=== PATIENT | male | born 1935 | race Caucasian/White ===

== ENCOUNTER 2017-09-05 19:37 | Inpatient (IN) | payer OTHER ==
[~2017-09-05 19:37] MED LIST: ETOMIDATE 20 MG INJ; SUCCINYLCHOLINE CHLORIDE 100 MG/5 ML SYG IV
[2017-09-05] MEDS: ASPIRIN 81 MG TAB PO (19:49)
[2017-09-05] MEDS: METHYLPREDNISOLONE 125 MG INJ IV (19:49)
[2017-09-05] MEDS: FUROSEMIDE 40 MG INJ IV (19:50)
[2017-09-05] MEDS ORDERED: ONDANSETRON 4 MG INJ (19:57)
[2017-09-05] MEDS: ONDANSETRON 4 MG INJ IV (20:04)
[2017-09-05 20:06] LABS: ADD MAN DIFF? NO
[2017-09-05 20:09] LABS: ABNORMAL IP MESSAGE 1; BASOPHILS % 0.2 % (0.0-2.0); EOSINOPHILS # 0.1 10^3/ul (0.0-0.5); EOSINOPHILS % 1.3 % (0.0-7.0); HEMATOCRIT 36.9 % (42.0-52.0); HEMOGLOBIN 12.1 g/dl (14.0-18.0); LYMPHOCYTES # 0.4 10^3/ul (0.8-2.9); LYMPHOCYTES % 7.2 % (15.0-51.0); MEAN CORPUSCULAR HEMOGLOBIN 33.2 pg (29.0-33.0); MEAN CORPUSCULAR HGB CONC 32.8 g/dl (32.0-37.0); MEAN CORPUSCULAR VOLUME 101.4 fl (82.0-101.0); MEAN PLATELET VOLUME 9.9 fl (7.4-10.4); MONOCYTE # 0.5 10^3/ul (0.3-0.9); MONOCYTES % 8.9 % (0.0-11.0); NEUTROPHILS % 81.9 % (39.0-77.0); PLATELET COUNT 185 10^3/UL (140-415); POSITIVE DIFF @See below; RED BLOOD COUNT 3.64 10^6/ul (4.70-6.10); RED CELL DISTRIBUTION WIDTH 14.4 % (11.5-14.5)
[2017-09-05 20:09] LABS: WHITE BLOOD COUNT 6.1 10^3/ul (4.8-10.8)
[2017-09-05] MEDS: NITROGLYCERIN 50 MG/D5W (PMX) 250 ML IV (20:13)
[2017-09-05] MEDS ORDERED: PROPOFOL 100 ML (20:33)
[2017-09-05 20:35] LABS: ANION GAP 20 (8-16); BLOOD UREA NITROGEN 24 mg/dl (7-20); CALCIUM 9.2 mg/dl (8.4-10.2); CARBON DIOXIDE 30 mmol/L (21-31); CHLORIDE 96 mmol/L (97-110); CREATININE 4.54 mg/dl (0.61-1.24); GLUCOSE 174 mg/dl (70-220); POTASSIUM 3.6 mmol/L (3.5-5.1); SODIUM 142 mmol/L (135-144)
[2017-09-05] MEDS: IPRATROPIUM (NEB) 0.5 MG/2.5 ML AMP INH (20:37)
[2017-09-05] MEDS: ALBUTEROL 0.5% (NEB) 2.5 MG/0.5 ML AMP INH (20:37)
[2017-09-05] MEDS: PROPOFOL 100 ML IV (20:55)
[2017-09-05] MEDS: MIDAZOLAM (DRIP) 50 mg/50 mL 50 ML IV (21:34)
[2017-09-05 22:13] LABS: AADO2 Arterial 353.1 mmHg (7.0-24.0); Allen Test ACCEPTAB; Arterial Base Excess 4.2 mmol/L (-3.0-3); Arterial Blood Gas Oxygen Sat 99.3 mmHG (95.0-100.0); Arterial COHb 0.4 % (0.0-3.0); Arterial Fraction of Oxyhgb 98.8 % (93.0-99.0); Arterial HCO3 27.2 mmol/L (22.0-26.0); Arterial MetHb 0.1 % (0.0-1.5); Arterial Total Hemglobin 10.9 g/dl (12.0-18.0); Arterial pCO2 34.9 mmhg (35-45); MODE VENT - AC; Site Right Radial
[2017-09-05] MEDS ORDERED: LORAZEPAM 2 MG INJ IV (22:30)
[2017-09-05] MEDS ORDERED: PROPOFOL 100 ML IV (22:30)
[2017-09-06] MEDS ORDERED: NORepinephrine 8MG/250 ML (PMX 250 ML (02:07)
[2017-09-06] MEDS: NORepinephrine 8MG/250 ML (PMX 250 ML IV (02:17)
[2017-09-06] MEDS: SOD CHLORIDE 0.9% 1,000 ML IV (03:43)
[2017-09-06] MEDS ORDERED: GLUCOSE GEL 15 GRAM TUBE PO ×2 (04:30)
[2017-09-06] MEDS ORDERED: DEXTROSE 50% 50 ML SYRINGE IV ×2 (04:30)
[2017-09-06] MEDS ORDERED: GLUCOSE GEL 15 GRAM TUBE BUCCAL (04:30)
[2017-09-06] MEDS ORDERED: GLUCAGON 1 MG INJ IM (04:30)
[2017-09-06] MEDS: MIDAZOLAM (DRIP) 50 mg/50 mL 50 ML IV (05:05)
[2017-09-06] MEDS: INSULIN ASPART [NOVOLOG] 3 ML PEN SC ×5 (05:06→21:00)
[2017-09-06 08:18] LABS: ADD MAN DIFF? NO
[2017-09-06 08:23] LABS: ABNORMAL IP MESSAGE 1; HEMATOCRIT 31.6 % (42.0-52.0); HEMOGLOBIN 10.2 g/dl (14.0-18.0); LYMPHOCYTES # 0.2 10^3/ul (0.8-2.9); LYMPHOCYTES % 5.8 % (15.0-51.0); MEAN CORPUSCULAR HEMOGLOBIN 33.1 pg (29.0-33.0); MEAN CORPUSCULAR HGB CONC 32.3 g/dl (32.0-37.0); MEAN CORPUSCULAR VOLUME 102.6 fl (82.0-101.0); MONOCYTE # 0.2 10^3/ul (0.3-0.9); MONOCYTES % 3.8 % (0.0-11.0); NEUTROPHIL # 3.7 10^3/ul (1.6-7.5); NEUTROPHILS % 89.9 % (39.0-77.0); PLATELET COUNT 142 10^3/UL (140-415); POSITIVE DIFF @See below; RED BLOOD COUNT 3.08 10^6/ul (4.70-6.10); RED CELL DISTRIBUTION WIDTH 14.4 % (11.5-14.5)
[2017-09-06 08:23] LABS: WHITE BLOOD COUNT 4.2 10^3/ul (4.8-10.8)
[2017-09-06 08:51] LABS: ALANINE AMINOTRANSFERASE 24 IU/L (13-69); ALBUMIN 3.3 g/dl (3.3-4.9); ALBUMIN/GLOBULIN RATIO 1.13; ALKALINE PHOSPHATASE 68 IU/L (42-121); ANION GAP 18 (8-16); ASPARTATE AMINO TRANSFERASE 17 IU/L (15-46); BILIRUBIN,INDIRECT 0.3 mg/dl (0-1.1); BILIRUBIN,TOTAL 0.3 mg/dl (0.2-1.3); BLOOD UREA NITROGEN 37 mg/dl (7-20); CALCIUM 8.6 mg/dl (8.4-10.2); CARBON DIOXIDE 28 mmol/L (21-31); CHLORIDE 100 mmol/L (97-110); CHOL/HDL RATIO 4.3 RATIO; CHOLESTEROL 118 mg/dl (100-200); CREATININE 5.76 mg/dl (0.61-1.24); GLUCOSE 190 mg/dl (70-220); HDL CHOLESTEROL 27 mg/dl (31-75); LDL CHOLESTEROL,CALCULATED 68 mg/dl; MAGNESIUM 1.9 mg/dl (1.7-2.5); PHOSPHORUS 4.4 mg/dl (2.5-4.9); POTASSIUM 4.5 mmol/L (3.5-5.1); SODIUM 141 mmol/L (135-144); TOTAL PROTEIN 6.2 g/dl (6.1-8.1); TRIGLYCERIDES 115 mg/dl (0-149)
[2017-09-06 08:52] LABS: HEMOGLOBIN A1C 5.6 % (0-5.9)
[2017-09-06] MEDS ORDERED: ENOXAPARIN 40 MG/0.4 ML SYG SC (09:00)
[2017-09-06 11:18] LABS: AADO2 Arterial 150.7 mmHg (7.0-24.0); Allen Test ACCEPTAB; Arterial COHb 0.7 % (0.0-3.0); Arterial HCO3 26.6 mmol/L (22.0-26.0); Arterial MetHb 0.3 % (0.0-1.5); Arterial Total Hemglobin 11.2 g/dl (12.0-18.0); Blood Gas PS 10; MODE VENT - CPAP; Site Right Radial
[2017-09-06] MEDS: ASPIRIN (EC) 81 MG TAB PO (18:09)
[2017-09-06] MEDS: PRAZOSIN 1 MG CAP PO ×2 (18:10→21:00)
[2017-09-06 19:51] LABS: CREATINE KINASE 86 IU/L (23-200)
[2017-09-06 20:05] LABS: CK INDEX 5.6; CK-MB 4.85 ng/ml (0.0-2.4)
[2017-09-06 20:23] LABS: HEPATITIS B SURFACE ANTIGEN NEGATIVE (NEGATIVE)
[2017-09-06] MEDS: METOPROLOL 25 MG TAB PO (21:00)
[2017-09-06] MEDS: ATORVASTATIN 40 MG TAB PO (21:06)
[2017-09-07 01:39] LABS: CREATINE KINASE 63 IU/L (23-200)
[2017-09-07 01:42] LABS: CK INDEX 5.9
[2017-09-07] MEDS: INSULIN ASPART [NOVOLOG] 3 ML PEN SC ×5 (01:42→17:00)
[2017-09-07 01:46] LABS: CK-MB 3.69 ng/ml (0.0-2.4)
[2017-09-07] MEDS: ONDANSETRON 4 MG INJ IV (04:21)
[2017-09-07 05:50] LABS: ADD MAN DIFF? NO
[2017-09-07 05:58] LABS: ABNORMAL IP MESSAGE 1; BASOPHILS % 0.1 % (0.0-2.0); HEMATOCRIT 32.4 % (42.0-52.0); HEMOGLOBIN 10.5 g/dl (14.0-18.0); LYMPHOCYTES # 0.4 10^3/ul (0.8-2.9); LYMPHOCYTES % 3.7 % (15.0-51.0); MEAN CORPUSCULAR HEMOGLOBIN 32.9 pg (29.0-33.0); MEAN CORPUSCULAR HGB CONC 32.4 g/dl (32.0-37.0); MEAN CORPUSCULAR VOLUME 101.6 fl (82.0-101.0); MEAN PLATELET VOLUME 10.6 fl (7.4-10.4); MONOCYTE # 1.2 10^3/ul (0.3-0.9); MONOCYTES % 10.9 % (0.0-11.0); NEUTROPHIL # 8.9 10^3/ul (1.6-7.5); NEUTROPHILS % 84.9 % (39.0-77.0); PLATELET COUNT 165 10^3/UL (140-415); POSITIVE DIFF @See below; RED BLOOD COUNT 3.19 10^6/ul (4.70-6.10); RED CELL DISTRIBUTION WIDTH 14.4 % (11.5-14.5)
[2017-09-07 05:58] LABS: WHITE BLOOD COUNT 10.5 10^3/ul (4.8-10.8)
[2017-09-07 06:28] LABS: ANION GAP 16 (8-16); BLOOD UREA NITROGEN 41 mg/dl (7-20); CALCIUM 8.8 mg/dl (8.4-10.2); CARBON DIOXIDE 29 mmol/L (21-31); CHLORIDE 100 mmol/L (97-110); CREATININE 5.02 mg/dl (0.61-1.24); GLUCOSE 115 mg/dl (70-220); SODIUM 140 mmol/L (135-144)
[2017-09-07 07:43] LABS: FOLATE > 20.0 ng/ml (2.8-20.0)
[2017-09-07] MEDS: PRAZOSIN 1 MG CAP PO (09:59)
[2017-09-07] MEDS: METOPROLOL 25 MG TAB PO (09:59)
[2017-09-07] MEDS: ASPIRIN (EC) 81 MG TAB PO (10:10)
== END 2017-09-07 19:20 | disposition home or self-care (01) | DRG 208 ==
LOC: ICU 21:09 → E/R 19:37
PROC: 0BH17EZ Insertion of Endotracheal Airway into Trachea, Via Natural or Artificial Opening (ICD-10-PCS; principal; 2017-09-05)
PROC: 5A1935Z Respiratory Ventilation, Less than 24 Consecutive Hours (ICD-10-PCS; 2017-09-05)
PROC: 5A1D70Z Performance of Urinary Filtration, Intermittent, Less than 6 Hours Per Day (ICD-10-PCS; 2017-09-06)
PROC: 5A1D70Z Performance of Urinary Filtration, Intermittent, Less than 6 Hours Per Day (ICD-10-PCS; 2017-09-07)
DX: J96.01 Acute respiratory failure with hypoxia (principal); N18.6 End stage renal disease; I50.43 Acute on chronic combined systolic (congestive) and diastolic (congestive) heart failure; I21.A1 Myocardial infarction type 2; I13.2 Hypertensive heart and chronic kidney disease with heart failure and with stage 5 chronic kidney disease, or end stage renal disease; J44.1 Chronic obstructive pulmonary disease with (acute) exacerbation; E11.22 Type 2 diabetes mellitus with diabetic chronic kidney disease; I95.9 Hypotension, unspecified; E87.70 Fluid overload, unspecified; E03.9 Hypothyroidism, unspecified; E11.65 Type 2 diabetes mellitus with hyperglycemia; D63.1 Anemia in chronic kidney disease; E78.5 Hyperlipidemia, unspecified; D50.9 Iron deficiency anemia, unspecified; Z79.4 Long term (current) use of insulin; Z79.82 Long term (current) use of aspirin; Z99.2 Dependence on renal dialysis; Z87.891 Personal history of nicotine dependence
CPT/HCPCS: 31500; 36415; 36600; 71045; 80048; 80053; 80061; 82550; 82553; 82607; 82746; 82803; 82962; 83036; 83735; 84100; 84443; 84484; 85025; 87081; 87340; 90935; 93005; 93306; 94002; 94003; 94644; 94660; 94770; 96374; 96375; 99291-25

== ENCOUNTER 2017-09-17 15:45 | Inpatient (IN) | payer OTHER ==
[2017-09-17 16:32] LABS: ADD MAN DIFF? NO
[2017-09-17 16:34] LABS: BASOPHIL # 0.1 10^3/ul (0.0-0.1); BASOPHILS % 0.3 % (0.0-2.0); EOSINOPHILS # 0.2 10^3/ul (0.0-0.5); EOSINOPHILS % 1.2 % (0.0-7.0); HEMOGLOBIN 10.2 g/dl (14.0-18.0); LYMPHOCYTES # 0.7 10^3/ul (0.8-2.9); LYMPHOCYTES % 4.8 % (15.0-51.0); MEAN CORPUSCULAR HEMOGLOBIN 32.2 pg (29.0-33.0); MEAN CORPUSCULAR HGB CONC 31.9 g/dl (32.0-37.0); MEAN CORPUSCULAR VOLUME 100.9 fl (82.0-101.0); MEAN PLATELET VOLUME 10.1 fl (7.4-10.4); MONOCYTE # 0.9 10^3/ul (0.3-0.9); MONOCYTES % 5.6 % (0.0-11.0); NEUTROPHIL # 13.3 10^3/ul (1.6-7.5); NEUTROPHILS % 87.7 % (39.0-77.0); PLATELET COUNT 265 10^3/UL (140-415); RED BLOOD COUNT 3.17 10^6/ul (4.70-6.10); RED CELL DISTRIBUTION WIDTH 14.8 % (11.5-14.5)
[2017-09-17 16:34] LABS: WHITE BLOOD COUNT 15.2 10^3/ul (4.8-10.8)
[2017-09-17 16:54] LABS: ALANINE AMINOTRANSFERASE 39 IU/L (13-69); ALKALINE PHOSPHATASE 110 IU/L (42-121); ANION GAP 23 (8-16); ASPARTATE AMINO TRANSFERASE 14 IU/L (15-46); BILIRUBIN,INDIRECT 0.2 mg/dl (0-1.1); BILIRUBIN,TOTAL 0.2 mg/dl (0.2-1.3); BLOOD UREA NITROGEN 63 mg/dl (7-20); CALCIUM 8.5 mg/dl (8.4-10.2); CARBON DIOXIDE 21 mmol/L (21-31); CHLORIDE 103 mmol/L (97-110); CREATININE 9.82 mg/dl (0.61-1.24); GLUCOSE 98 mg/dl (70-220); PHOSPHORUS 7.2 mg/dl (2.5-4.9); POTASSIUM 4.3 mmol/L (3.5-5.1); SODIUM 143 mmol/L (135-144)
[2017-09-17 16:55] LABS: ALBUMIN/GLOBULIN RATIO 1.25; TOTAL PROTEIN 7.2 g/dl (6.1-8.1)
[2017-09-17 17:05] LABS: TROPONIN-I 0.015 ng/ml (0.000-0.120)
[2017-09-17 17:21] LABS: INR 1.05; PROTIME 13.8 Sec (11.9-14.9); PT RATIO 1.1
[2017-09-17 17:22] LABS: PARTIAL THROMBOPLASTIN TIME 37.2 Sec (25.0-35.0)
[2017-09-17 17:33] LABS: URINE BLOOD (Dip) POC 2+ (NEGATIVE); URINE GLUCOSE (Dip) POC Negative (NEGATIVE); URINE KETONES (Dip) POC Negative (NEGATIVE); URINE LEUKOCYTE EST (Dip) POC 1+ (NEGATIVE); URINE NITRITE (Dip) POC Negative (NEGATIVE); URINE TOTAL PROTEIN POC 3+ (NEGATIVE)
[2017-09-17 17:48] LABS: UR BACTERIA FEW /HPF (NONE SEEN); UR RBC 6 /HPF (0-5); UR WBC > 182 /HPF (0-5)
[2017-09-17 18:32] LABS: ADD UMIC YES; UR ASCORBIC ACID NEGATIVE (NEGATIVE); UR BILIRUBIN (Dip) NEGATIVE (NEGATIVE); UR BLOOD (Dip) 1+ mg/dL (NEGATIVE); UR CLARITY CLOUDY (CLEAR); UR COLOR YELLOW (YELLOW); UR GLUCOSE (Dip) NEGATIVE (NEGATIVE); UR KETONES (Dip) NEGATIVE (NEGATIVE); UR LEUKOCYTE ESTERASE (Dip) 3+ Leu/ul (NEGATIVE); UR NITRITE (Dip) NEGATIVE (NEGATIVE); UR SPECIFIC GRAVITY (Dip) 1.012 (1.003-1.030); UR TOTAL PROTEIN (Dip) 3+ mg/dl (NEGATIVE); UR UROBILINOGEN (Dip) NEGATIVE (NEGATIVE)
[2017-09-17] MEDS: PIPER-TAZO 2.25 GM (PMX) 50 ML IVPB (18:49)
[2017-09-17] MEDS: METOPROLOL (XL) 100 MG TAB PO (22:24)
[2017-09-17] MEDS ORDERED: DEXTROSE 50% 50 ML SYRINGE IV ×2 (22:30)
[2017-09-17] MEDS ORDERED: GLUCAGON 1 MG INJ IM (22:30)
[2017-09-17] MEDS ORDERED: GLUCOSE GEL 15 GRAM TUBE BUCCAL (22:30)
[2017-09-17] MEDS ORDERED: GLUCOSE GEL 15 GRAM TUBE PO ×2 (22:30)
[2017-09-18] MEDS: ACCU-CHEK XX (02:00)
[2017-09-18 06:22] LABS: ADD MAN DIFF? NO
[2017-09-18 06:29] LABS: BASOPHILS % 0.3 % (0.0-2.0); EOSINOPHILS # 0.2 10^3/ul (0.0-0.5); EOSINOPHILS % 1.4 % (0.0-7.0); HEMATOCRIT 31.1 % (42.0-52.0); HEMOGLOBIN 10.2 g/dl (14.0-18.0); LYMPHOCYTES # 0.8 10^3/ul (0.8-2.9); LYMPHOCYTES % 5.9 % (15.0-51.0); MEAN CORPUSCULAR HEMOGLOBIN 32.6 pg (29.0-33.0); MEAN CORPUSCULAR HGB CONC 32.8 g/dl (32.0-37.0); MEAN CORPUSCULAR VOLUME 99.4 fl (82.0-101.0); MEAN PLATELET VOLUME 10.3 fl (7.4-10.4); MONOCYTE # 0.9 10^3/ul (0.3-0.9); MONOCYTES % 6.7 % (0.0-11.0); NEUTROPHIL # 11.9 10^3/ul (1.6-7.5); NEUTROPHILS % 85.2 % (39.0-77.0); PLATELET COUNT 274 10^3/UL (140-415); RED BLOOD COUNT 3.13 10^6/ul (4.70-6.10); RED CELL DISTRIBUTION WIDTH 14.6 % (11.5-14.5)
[2017-09-18 06:29] LABS: WHITE BLOOD COUNT 13.9 10^3/ul (4.8-10.8)
[2017-09-18] MEDS: LEVOTHYROXINE 75 MCG TAB PO (06:39)
[2017-09-18 06:51] LABS: ALANINE AMINOTRANSFERASE 32 IU/L (13-69); ANION GAP 26 (8-16); BLOOD UREA NITROGEN 71 mg/dl (7-20); CALCIUM 8.6 mg/dl (8.4-10.2); CARBON DIOXIDE 19 mmol/L (21-31); CHLORIDE 100 mmol/L (97-110); GLUCOSE 102 mg/dl (70-220); POTASSIUM 4.2 mmol/L (3.5-5.1); SODIUM 141 mmol/L (135-144)
[2017-09-18 06:56] LABS: BILIRUBIN,INDIRECT 0.2 mg/dl (0-1.1); BILIRUBIN,TOTAL 0.2 mg/dl (0.2-1.3); CREATININE 10.53 mg/dl (0.61-1.24)
[2017-09-18 06:58] LABS: ALBUMIN/GLOBULIN RATIO 1.53; ALKALINE PHOSPHATASE 105 IU/L (42-121); ASPARTATE AMINO TRANSFERASE 11 IU/L (15-46); TOTAL PROTEIN 6.6 g/dl (6.1-8.1)
[2017-09-18] MEDS: INSULIN ASPART [NOVOLOG] 3 ML PEN SC ×4 (07:35→21:00)
[2017-09-18] MEDS: FLUTICASONE/VILANTEROL 100-25 INH (09:00)
[2017-09-18] MEDS: ASPIRIN (EC) 81 MG TAB PO (09:41)
[2017-09-18] MEDS: PRAZOSIN 1 MG CAP PO ×2 (09:42→21:18)
[2017-09-18] MEDS: METOPROLOL 100 MG TAB PO ×2 (09:43→21:20)
[2017-09-18] MEDS: LISINOPRIL 5 MG TAB PO (09:46)
[2017-09-18] MEDS ORDERED: hydrALAzine 20 MG INJ IV (10:30)
[2017-09-18 12:47] LABS: HEPATITIS B SURFACE ANTIGEN NEGATIVE (NEGATIVE)
[2017-09-18] MEDS ORDERED: CEFTRIAXONE 2 GM/50 ML (PMX) 50 ML IVPB (16:00)
[2017-09-18] MEDS: CEFTRIAXONE 2 GM/50 ML (PMX) 50 ML IVPB (18:12)
[2017-09-18] MEDS: ATORVASTATIN 40 MG TAB PO (21:20)
[2017-09-18] MEDS: ACETAMINOPHEN 325 MG TAB PO (23:01)
[2017-09-19] MEDS: ACCU-CHEK XX (02:00)
[2017-09-19 05:10] LABS: ADD MAN DIFF? NO
[2017-09-19 05:15] LABS: BASOPHILS % 0.4 % (0.0-2.0); EOSINOPHILS # 0.2 10^3/ul (0.0-0.5); EOSINOPHILS % 2.2 % (0.0-7.0); HEMATOCRIT 26.9 % (42.0-52.0); HEMOGLOBIN 8.9 g/dl (14.0-18.0); LYMPHOCYTES # 0.9 10^3/ul (0.8-2.9); LYMPHOCYTES % 10.8 % (15.0-51.0); MEAN CORPUSCULAR HEMOGLOBIN 32.7 pg (29.0-33.0); MEAN CORPUSCULAR HGB CONC 33.1 g/dl (32.0-37.0); MEAN CORPUSCULAR VOLUME 98.9 fl (82.0-101.0); MEAN PLATELET VOLUME 10.1 fl (7.4-10.4); MONOCYTE # 0.9 10^3/ul (0.3-0.9); MONOCYTES % 10.2 % (0.0-11.0); NEUTROPHIL # 6.4 10^3/ul (1.6-7.5); PLATELET COUNT 207 10^3/UL (140-415); RED BLOOD COUNT 2.72 10^6/ul (4.70-6.10); RED CELL DISTRIBUTION WIDTH 14.6 % (11.5-14.5)
[2017-09-19 05:15] LABS: WHITE BLOOD COUNT 8.4 10^3/ul (4.8-10.8)
[2017-09-19 05:37] LABS: ANION GAP 19 (8-16); BLOOD UREA NITROGEN 46 mg/dl (7-20); CALCIUM 8.1 mg/dl (8.4-10.2); CARBON DIOXIDE 27 mmol/L (21-31); CHLORIDE 100 mmol/L (97-110); CREATININE 7.08 mg/dl (0.61-1.24); GLUCOSE 97 mg/dl (70-220); MAGNESIUM 1.8 mg/dl (1.7-2.5); PHOSPHORUS 5.5 mg/dl (2.5-4.9); SODIUM 142 mmol/L (135-144)
[2017-09-19] MEDS: LEVOTHYROXINE 75 MCG TAB PO (07:00)
[2017-09-19] MEDS: INSULIN ASPART [NOVOLOG] 3 ML PEN SC ×4 (07:32→21:00)
[2017-09-19] MEDS: METOPROLOL 100 MG TAB PO ×2 (09:00→21:06)
[2017-09-19] MEDS: PRAZOSIN 1 MG CAP PO ×2 (09:00→21:05)
[2017-09-19] MEDS: LISINOPRIL 5 MG TAB PO (09:00)
[2017-09-19] MEDS: FLUTICASONE/VILANTEROL 100-25 INH (09:00)
[2017-09-19] MEDS: ASPIRIN (EC) 81 MG TAB PO (09:25)
[2017-09-19] MEDS: ATORVASTATIN 40 MG TAB PO (20:43)
[2017-09-19] MEDS: CEFTRIAXONE 2 GM/50 ML (PMX) 50 ML IVPB (20:43)
[2017-09-19] MEDS: ACETAMINOPHEN 325 MG TAB PO (23:57)
[2017-09-20] MEDS: ACCU-CHEK XX (02:00)
[2017-09-20] MEDS: LEVOTHYROXINE 75 MCG TAB PO (07:12)
[2017-09-20] MEDS: INSULIN ASPART [NOVOLOG] 3 ML PEN SC ×4 (07:29→21:00)
[2017-09-20] MEDS: ASPIRIN (EC) 81 MG TAB PO (08:28)
[2017-09-20] MEDS: PRAZOSIN 1 MG CAP PO ×2 (08:29→20:22)
[2017-09-20] MEDS: LISINOPRIL 5 MG TAB PO (08:29)
[2017-09-20] MEDS: METOPROLOL 100 MG TAB PO ×2 (08:29→20:22)
[2017-09-20] MEDS: FLUTICASONE/VILANTEROL 100-25 INH (08:34)
[2017-09-20] MEDS: LISINOPRIL 10 MG TAB PO (09:12)
[2017-09-20] MEDS: CEFTRIAXONE 2 GM/50 ML (PMX) 50 ML IVPB (17:26)
[2017-09-20] MEDS: ATORVASTATIN 40 MG TAB PO (20:21)
[2017-09-21] MEDS: ACETAMINOPHEN 325 MG TAB PO (01:17)
[2017-09-21] MEDS: ACCU-CHEK XX (02:00)
[2017-09-21] MEDS: LEVOTHYROXINE 75 MCG TAB PO (06:22)
[2017-09-21] MEDS: INSULIN ASPART [NOVOLOG] 3 ML PEN SC ×2 (07:32→11:45)
[2017-09-21] MEDS: ASPIRIN (EC) 81 MG TAB PO (08:22)
[2017-09-21] MEDS: FLUTICASONE/VILANTEROL 100-25 INH (08:24)
[2017-09-21] MEDS: LISINOPRIL 10 MG TAB PO (09:00)
[2017-09-21] MEDS: METOPROLOL 100 MG TAB PO (09:00)
[2017-09-21] MEDS: PRAZOSIN 1 MG CAP PO (09:00)
[2017-09-21] MEDS: CEFTRIAXONE 2 GM/50 ML (PMX) 50 ML IVPB (16:18)
[2017-09-21] MEDS: EPOETIN 10000 UNITS/1 ML INJ (ESRD) SC (16:20)
== END 2017-09-21 17:25 | disposition home or self-care (01) | DRG 689 ==
LOC: E/R 15:45 → MS3 21:09
PROC: 5A1D70Z Performance of Urinary Filtration, Intermittent, Less than 6 Hours Per Day (ICD-10-PCS; principal; 2017-09-18)
PROC: 5A1D70Z Performance of Urinary Filtration, Intermittent, Less than 6 Hours Per Day (ICD-10-PCS; 2017-09-19)
PROC: 5A1D70Z Performance of Urinary Filtration, Intermittent, Less than 6 Hours Per Day (ICD-10-PCS; 2017-09-21)
DX: N39.0 Urinary tract infection, site not specified (principal); N18.6 End stage renal disease; I12.0 Hypertensive chronic kidney disease with stage 5 chronic kidney disease or end stage renal disease; J44.9 Chronic obstructive pulmonary disease, unspecified; Z99.2 Dependence on renal dialysis; D64.9 Anemia, unspecified; N40.0 Benign prostatic hyperplasia without lower urinary tract symptoms; E03.9 Hypothyroidism, unspecified; D72.829 Elevated white blood cell count, unspecified
CPT/HCPCS: 36415; 71045; 80048; 80053; 81001; 81003; 82962; 83735; 84100; 84484; 85025; 85610; 85730; 87086; 87340; 90935; 93005; 99285-25

== ENCOUNTER 2017-09-24 15:23 | Inpatient (IN) | payer OTHER ==
[2017-09-24 19:01] LABS: ADD MAN DIFF? NO
[2017-09-24 19:02] LABS: WHITE BLOOD COUNT 9.6 10^3/ul (4.8-10.8)
[2017-09-24 19:02] LABS: ABNORMAL IP MESSAGE 1; BASOPHIL # 0.1 10^3/ul (0.0-0.1); BASOPHILS % 0.5 % (0.0-2.0); EOSINOPHILS # 0.2 10^3/ul (0.0-0.5); EOSINOPHILS % 1.7 % (0.0-7.0); HEMOGLOBIN 10.1 g/dl (14.0-18.0); LYMPHOCYTES # 0.6 10^3/ul (0.8-2.9); LYMPHOCYTES % 5.7 % (15.0-51.0); MEAN CORPUSCULAR HEMOGLOBIN 32.8 pg (29.0-33.0); MEAN CORPUSCULAR HGB CONC 32.6 g/dl (32.0-37.0); MEAN CORPUSCULAR VOLUME 100.6 fl (82.0-101.0); MEAN PLATELET VOLUME 10.2 fl (7.4-10.4); MONOCYTE # 0.7 10^3/ul (0.3-0.9); MONOCYTES % 7.3 % (0.0-11.0); NEUTROPHIL # 8.1 10^3/ul (1.6-7.5); NEUTROPHILS % 84.4 % (39.0-77.0); PLATELET COUNT 234 10^3/UL (140-415); POSITIVE DIFF @See below; RED BLOOD COUNT 3.08 10^6/ul (4.70-6.10); RED CELL DISTRIBUTION WIDTH 14.7 % (11.5-14.5)
[2017-09-24 19:21] LABS: ANION GAP 24 (8-16); BLOOD UREA NITROGEN 70 mg/dl (7-20); CALCIUM 8.6 mg/dl (8.4-10.2); CARBON DIOXIDE 19 mmol/L (21-31); CHLORIDE 102 mmol/L (97-110); GLUCOSE 123 mg/dl (70-220); POTASSIUM 4.4 mmol/L (3.5-5.1); SODIUM 141 mmol/L (135-144)
[2017-09-24 19:22] LABS: INR 1.14; PROTIME 14.8 Sec (11.9-14.9); PT RATIO 1.2
[2017-09-24 19:23] LABS: PARTIAL THROMBOPLASTIN TIME 34.7 Sec (25.0-35.0)
[2017-09-24 19:24] LABS: URINE PH (Dip) POC 7.5 (5.0-8.5)
[2017-09-24 19:24] LABS: URINE BLOOD (Dip) POC 1+ (NEGATIVE); URINE KETONES (Dip) POC Negative (NEGATIVE); URINE LEUKOCYTE EST (Dip) POC Negative (NEGATIVE); URINE NITRITE (Dip) POC Negative (NEGATIVE); URINE TOTAL PROTEIN POC 2+ (NEGATIVE)
[2017-09-24 19:33] LABS: TROPONIN-I 0.038 ng/ml (0.000-0.120)
[2017-09-24] MEDS: FUROSEMIDE 40 MG INJ IV (20:01)
[2017-09-24] MEDS: hydrALAzine 20 MG INJ IV (22:26)
[2017-09-25] MEDS: PRAZOSIN 1 MG CAP PO ×3 (02:30→20:55)
[2017-09-25] MEDS: METOPROLOL 100 MG TAB PO ×3 (02:30→20:55)
[2017-09-25] MEDS: AMOXICILLIN 500 MG CAP PO ×3 (02:30→20:55)
[2017-09-25] MEDS ORDERED: ALBUTEROL/IPRATROPIUM (NEB) 3 ML AMP HHN (04:30)
[2017-09-25] MEDS: LEVOTHYROXINE 75 MCG TAB PO ×2 (06:12)
[2017-09-25] MEDS: LISINOPRIL 10 MG TAB PO (08:12)
[2017-09-25] MEDS: ASPIRIN (EC) 81 MG TAB PO (08:12)
[2017-09-25] MEDS: FISH OIL 1,000 MG CAP PO (08:13)
[2017-09-25] MEDS: FLUTICASONE/VILANTEROL 100-25 INH (09:00)
[2017-09-25] MEDS ORDERED: IRON PO (09:00)
[2017-09-25 09:14] LABS: ADD MAN DIFF? NO
[2017-09-25 09:44] LABS: ABNORMAL IP MESSAGE 1; BASOPHILS % 0.3 % (0.0-2.0); EOSINOPHILS # 0.2 10^3/ul (0.0-0.5); EOSINOPHILS % 1.8 % (0.0-7.0); HEMATOCRIT 30.1 % (42.0-52.0); HEMOGLOBIN 9.9 g/dl (14.0-18.0); LYMPHOCYTES # 0.6 10^3/ul (0.8-2.9); LYMPHOCYTES % 5.8 % (15.0-51.0); MEAN CORPUSCULAR HEMOGLOBIN 32.1 pg (29.0-33.0); MEAN CORPUSCULAR HGB CONC 32.9 g/dl (32.0-37.0); MEAN CORPUSCULAR VOLUME 97.7 fl (82.0-101.0); MEAN PLATELET VOLUME 10.5 fl (7.4-10.4); MONOCYTES % 9.7 % (0.0-11.0); NEUTROPHIL # 8.1 10^3/ul (1.6-7.5); PLATELET COUNT 242 10^3/UL (140-415); POSITIVE DIFF @See below; RED BLOOD COUNT 3.08 10^6/ul (4.70-6.10); RED CELL DISTRIBUTION WIDTH 14.7 % (11.5-14.5)
[2017-09-25 09:44] LABS: WHITE BLOOD COUNT 9.9 10^3/ul (4.8-10.8)
[2017-09-25 09:47] LABS: ANION GAP 18 (8-16); BLOOD UREA NITROGEN 34 mg/dl (7-20); CARBON DIOXIDE 28 mmol/L (21-31); CHLORIDE 99 mmol/L (97-110); CREATININE 5.77 mg/dl (0.61-1.24); GLUCOSE 96 mg/dl (70-220); MAGNESIUM 1.9 mg/dl (1.7-2.5); PHOSPHORUS 3.9 mg/dl (2.5-4.9); POTASSIUM 4.3 mmol/L (3.5-5.1); SODIUM 141 mmol/L (135-144)
[2017-09-25 14:09] LABS: HEMOGLOBIN A1C 5.7 % (0-5.9)
[2017-09-25] MEDS: ACETAMINOPHEN 325 MG TAB PO (14:49)
[2017-09-25] MEDS: FERROUS SULFATE (EC) 325 MG TAB PO (17:39)
[2017-09-25] MEDS: ATORVASTATIN 40 MG TAB PO (20:55)
[2017-09-26] MEDS: ACETAMINOPHEN 325 MG TAB PO (02:21)
[2017-09-26] MEDS: LEVOTHYROXINE 75 MCG TAB PO (06:45)
[2017-09-26 07:15] LABS: ADD MAN DIFF? NO
[2017-09-26 07:18] LABS: WHITE BLOOD COUNT 5.9 10^3/ul (4.8-10.8)
[2017-09-26 07:19] LABS: BASOPHILS % 0.5 % (0.0-2.0); EOSINOPHILS # 0.3 10^3/ul (0.0-0.5); EOSINOPHILS % 5.2 % (0.0-7.0); HEMATOCRIT 27.5 % (42.0-52.0); HEMOGLOBIN 8.8 g/dl (14.0-18.0); LYMPHOCYTES # 0.8 10^3/ul (0.8-2.9); LYMPHOCYTES % 12.7 % (15.0-51.0); MEAN CORPUSCULAR HEMOGLOBIN 32.1 pg (29.0-33.0); MEAN CORPUSCULAR VOLUME 100.4 fl (82.0-101.0); MEAN PLATELET VOLUME 10.4 fl (7.4-10.4); MONOCYTE # 0.8 10^3/ul (0.3-0.9); MONOCYTES % 13.4 % (0.0-11.0); PLATELET COUNT 189 10^3/UL (140-415); RED BLOOD COUNT 2.74 10^6/ul (4.70-6.10); RED CELL DISTRIBUTION WIDTH 14.8 % (11.5-14.5)
[2017-09-26 07:45] LABS: ANION GAP 19 (8-16); BLOOD UREA NITROGEN 51 mg/dl (7-20); CALCIUM 8.2 mg/dl (8.4-10.2); CARBON DIOXIDE 24 mmol/L (21-31); CHLORIDE 99 mmol/L (97-110); CREATININE 7.57 mg/dl (0.61-1.24); GLUCOSE 81 mg/dl (70-220); POTASSIUM 4.2 mmol/L (3.5-5.1); SODIUM 138 mmol/L (135-144)
[2017-09-26 07:47] LABS: MAGNESIUM 1.9 mg/dl (1.7-2.5)
[2017-09-26 07:47] LABS: PHOSPHORUS 5.3 mg/dl (2.5-4.9)
[2017-09-26] MEDS: FISH OIL 1,000 MG CAP PO (08:29)
[2017-09-26] MEDS: AMOXICILLIN 500 MG CAP PO (08:29)
[2017-09-26] MEDS: FERROUS SULFATE (EC) 325 MG TAB PO (08:29)
[2017-09-26] MEDS: METOPROLOL 100 MG TAB PO (08:30)
[2017-09-26] MEDS: ASPIRIN (EC) 81 MG TAB PO (08:30)
[2017-09-26] MEDS: PRAZOSIN 1 MG CAP PO (08:30)
[2017-09-26] MEDS: LISINOPRIL 10 MG TAB PO (08:30)
[2017-09-26] MEDS: FLUTICASONE/VILANTEROL 100-25 INH (08:31)
[2017-09-26 14:44] LABS: HEPATITIS B SURFACE ANTIBODY POSITIVE (NEGATIVE)
[2017-09-26] MEDS: EPOETIN 10000 UNITS/1 ML INJ (ESRD) SC (17:41)
== END 2017-09-26 21:00 | disposition home or self-care (01) | DRG 291 ==
LOC: TEL 09-26 17:51 → E/R 15:23 → TEL 19:34
PROC: 5A1D70Z Performance of Urinary Filtration, Intermittent, Less than 6 Hours Per Day (ICD-10-PCS; principal; 2017-09-25)
PROC: 5A1D70Z Performance of Urinary Filtration, Intermittent, Less than 6 Hours Per Day (ICD-10-PCS; 2017-09-26)
DX: I13.2 Hypertensive heart and chronic kidney disease with heart failure and with stage 5 chronic kidney disease, or end stage renal disease (principal); I50.23 Acute on chronic systolic (congestive) heart failure; N18.6 End stage renal disease; J96.01 Acute respiratory failure with hypoxia; N39.0 Urinary tract infection, site not specified; Z99.2 Dependence on renal dialysis; Z91.15 Patient's noncompliance with renal dialysis; I25.10 Atherosclerotic heart disease of native coronary artery without angina pectoris; E03.9 Hypothyroidism, unspecified; J44.9 Chronic obstructive pulmonary disease, unspecified; N40.0 Benign prostatic hyperplasia without lower urinary tract symptoms; E78.5 Hyperlipidemia, unspecified; I35.0 Nonrheumatic aortic (valve) stenosis; I27.20 Pulmonary hypertension, unspecified; I42.9 Cardiomyopathy, unspecified; D63.1 Anemia in chronic kidney disease; Z87.891 Personal history of nicotine dependence; E83.89 Other disorders of mineral metabolism
CPT/HCPCS: 36415; 71045; 80048; 81003; 83036; 83735; 84100; 84484; 85025; 85610; 85730; 86706; 90935; 93005; 99291-25